=== PATIENT | male | born 1990 | race Caucasian/White ===

== ENCOUNTER 2018-05-10 12:25 | Emergency (ER) | payer SELFPAY ==
[~2018-05-10] VITALS: Ht 165.1 cm; Wt 59.0 kg
[2018-05-10] MEDS ORDERED: NALOXONE HCL 0.4 MG/ML AMPUL IV ONE (12:30)
--- NOTE | 2018-05-10 12:30 | NUR ---
PATIENT TO ED DUE TO ALTERED MENTAL STATUS, PATIENT WAS REPORTED FOUND LAYING ON THE STREET, LETHARGIC. PATIENT IS AWAKE AND ALERT. NOT IN DISTRESS. RESPIRATION EVEN AND UNLABORED. SKIN IS WARM TO TOUCH AND NION DIAPHORETIC. PT IS AFEBRILE
[2018-05-10] MEDS ORDERED: NALOXONE PREFILLED SYRINGE 2 MG/2 ML SYRINGE ONE (12:32)
--- NOTE | 2018-05-10 16:31 | NUR ---
Patient discharged to home in stable condition. Written and verbal after care instructions given. Patient verbalizes understanding of instruction.IV removed. Catheter intact and site benign. Pressure and 4x4 applied to site. No bleeding noted.
[2018-05-10 16:32] VITALS: BP 112/71
== END 2018-05-10 16:32 | disposition home or self-care (01) ==
LOC: ER 12:28
DX: T40.1X1A Poisoning by heroin, accidental (unintentional), initial encounter (principal); G93.49 Other encephalopathy; Y92.89 Other specified places as the place of occurrence of the external cause
CPT/HCPCS: 36415; 70450; 82962; 96374; 99285; A4606; G0480; J2310; Z7610